=== PATIENT | male | born 1940 | race Caucasian/White ===

== ENCOUNTER 2018-04-25 19:07 | Emergency (ER) | payer MEDICARE, OTHER ==
--- NOTE | 2018-04-25 19:23 | ER Document Report ---
ED General - General Chief Complaint: Chest Wall Pain Stated Complaint: CHEST TUBE ISSUE Time Seen by Provider: 04/25/18 19:23 Notes: Patient is a 77-year-old male with stage IV lung carcinoma that presents to the emergency department for chief complaint of chest tube coming out. Patient states that he felt like his chest tube was falling out, over the last day, but particularly today, it was much further and based on the measurements according to the patient's son, so they came to the emergency department to have this evaluated. Patient states he had a chest tube placed for iatrogenic pneumothorax, after having a lung biopsy on April 07, he had to small bore catheters placed, and had significant subcutaneous emphysema as a result, which led to him having a larger bore chest tube placed anteriorly, by cardio thoracic surgery. He denies having any shortness of breath, or any pain associated with this. He also denies any fevers, chills, night sweats. Past Medical History: Stage IV lung carcinoma Past Surgical History: Lung biopsy Social History: Former smoker, no current alcohol or drug use. Family History: Reviewed and noncontributory for presenting illness Allergies: Reviewed, see documented allergy list. REVIEW OF SYSTEMS: Other than noted above, the 12 point review of systems was reviewed with the patient and were negative, all pertinent findings are included in the HPI. PHYSICAL EXAMINATION: Vital signs reviewed, nursing noted reviewed. GENERAL: Elderly male, no acute distress HEAD: Atraumatic, normocephalic. EYES: Eyes appear normal, extraocular movements intact, sclera anicteric, conjunctiva are normal. ENT: nares patent, oropharynx clear without exudates. Moist mucous membranes. NECK: Normal range of motion, supple without lymphadenopathy LUNGS: Bilateral rhonchorous lung sounds, there is a chest tube dressing on the left patient's chest, this was removed, and revealed a completely withdrawn thoracostomy tube, no longer in the pleural space. Patient did have palpable subcutaneous emphysema. No respiratory distress. HEART: Heart rate mildly tachycardic, regular rhythm, no audible murmurs ABDOMEN: Soft, nontender, normoactive bowel sounds. No rebound, guarding, or rigidity. No masses appreciated. EXTREMITIES: Nontender, good range of motion, no pitting or edema. NEUROLOGICAL: No focal neurological deficits. Moves all extremities spontaneously Motor and sensory grossly intact on exam. PSYCH: Normal mood, normal affect. SKIN: Warm, Dry, normal turgor, no rashes or lesions noted on exposed skin TRAVEL OUTSIDE OF THE [place] IN LAST 30 DAYS: No Past Medical History - Social History Smoking Status: Former Smoker Family History: Reviewed & Not Pertinent Physical Exam - Vital signs Vitals: Temp Pulse Resp BP Pulse Ox 97.6 F 105 H 23 H 149/76 H 91 L 04/25/18 19:10 04/25/18 19:10 04/25/18 19:10 04/25/18 19:10 04/25/18 19:10 Course - Re-evaluation Re-evalutation: Patient seen and examined vital signs reviewed. Patient's chest tube was completely withdrawn, on my examination, his dressing was taken down, sutures had broken off, at the skin, these are removed, occlusive dressing was placed, I then sutured the patient's wound closed, as noted above, patient tolerated well. Chest x-ray was obtained, demonstrated small apical pneumothorax, discussed this with the radiologist, she did compared to his chest x-ray from 04/20/2018, when he did have the chest tube in place, per the radiologist, this did have a small apical pneumothorax at that time as well. I did discuss this case with the patient's cardiothoracic surgeon Dr. Agustin, that placed the chest tube, at [facility], he recommended repeating a 4-hour chest x-ray, and if unchanged, the patient could be discharged to follow-up with him on Friday, and if it worsen, to transfer the patient to [facility]. In the meantime, the patient was placed on supplemental oxygen, to help improve his small apical pneumothorax. Repeat chest x-ray was unchanged from prior, at this point I feel that the patient can be discharged to follow-up with Dr. Agustin in the office on Friday, advised if any worsening symptoms to return to the emergency department Evaluation was most consistent with chest tube malfunction, apical pneumothorax Results were discussed with the patient at this point, after careful consideration I feel that that patient can be discharged from the emergency department, the patient was educated treatments and reasons to return to the emergency department based on their presumed diagnosis as noted above, they were advised to followup with a primary care physician in 2-3 days. Patient was agreeable to plan of care. *Note is created using voice recognition software and may contain spelling, syntax or grammatical errors. Chest X-Ray 04/25/18 23:25 IMPRESSION: No significant change. - Vital Signs Vital signs: Temp Pulse Resp BP Pulse Ox 97.6 F 105 H 19 148/78 H 96 04/25/18 19:10 04/25/18 19:10 04/25/18 23:31 04/25/18 23:31 04/25/18 23:31 - EKG Interpretation by Me Additional EKG results interpreted by me: EKG demonstrates sinus tachycardia with a ventricular rate of 101 bpm, normal axis, normal intervals, no evidence of acute ischemia on this EKG, no prior available for comparison. Procedures - Laceration/Wound Repair Left Chest Wound length (cm): 2.5 Wound's Depth, Shape: Other - chest tube wound Laceration pre-procedure: Sterile PPE donned, Chloraprep applied, Sterile drapes applied Anesthetic type: 1% Lidocaine Wound explored: Clean Wound Repaired With: Sutures Suture Size/Type: 3:0, Nylon Number of Sutures: 3 Layer Closure?: No Discharge - Discharge Clinical Impression: Pneumothorax Qualifiers: Pneumothorax type: unspecified pneumothorax Qualified Code(s): J93.9 - Pneumothorax, unspecified Complication of chest tube Qualifiers: Encounter type: initial encounter Qualified Code(s): T85.9XXA - Unspecified complication of internal prosthetic device, implant and graft, initial encounter Condition: Stable Disposition: HOME, SELF-CARE Additional Instructions: Please do not hesitate to return to the emergency department if you have any worsening symptoms such as shortness of breath or significant chest pain particularly on the left side, otherwise please follow-up with the cardiothoracic surgeon, as scheduled on Friday. Prescriptions: Benzonatate [Tessalon Perle 100 mg Capsule] 100 mg PO Q8HP PRN #20 cap PRN Reason: Cough Referrals: DONNELL TUTTLE MD [Primary Care Provider] - Follow up as needed GARDENIA UGARTE MD [NO LOCAL MD] - Follow up tomorrow
[2018-04-25] MEDS ORDERED: LIDOCAINE 1% INJ-PF (10 MG/ML) 30 ML SDV ONE (19:36)
[2018-04-25] MEDS ORDERED: LIDOCAINE 1% INJ (10 MG/ML) 10 ML MDV INJ ONE (19:58)
--- NOTE | 2018-04-25 20:44 | RADIOLOGY REPORT (SQ) ---
EXAM DESCRIPTION: CHEST SINGLE VIEW COMPLETED DATE/TIME: 04/25/2018 8:03 pm REASON FOR STUDY: chest pain, hx chest tube placement. The chest tube fell out at home. COMPARISON: Chest x-ray 04/20/[address] chest 04/13/2018 performed of [facility] . EXAM PARAMETERS: NUMBER OF VIEWS: One view. TECHNIQUE: Single frontal radiographic view of the chest acquired. RADIATION DOSE: NA LIMITATIONS: None. FINDINGS: LUNGS AND PLEURA: There is a small left-sided pneumothorax measuring approximately 11 mm a t the left lung apex. Airspace opacity noted at the left upper lobe, corresponding to known mass. T here is mild atelectasis at the bilateral lung bases. No sizable pleural effusion. MEDIASTINUM AND HILAR STRUCTURES: No masses. Contour normal. HEART AND VASCULAR STRUCTURES: Heart normal in size. Normal vasculature. BONES: No acute findings. HARDWARE: None in the chest. OTHER: Moderate amount of subcutaneous emphysema is seen at the left-sided chest wall. Small amount of subcutaneous emphysema at the right chest wall. IMPRESSION: 1. Small left-sided pneumothorax. Subcutaneous emphysema, left more than right. 2. Airspace opacity at the left upper lobe, corresponding to known mass. 3. Mild bibasilar atelectasis. COMMUNICATION The critical information above was relayed directly by me by telephone to Dr. Mejia On 04/25/2018 at 20:30 hrs with readback verification. TECHNICAL DOCUMENTATION: JOB ID: [id number] 2010 [employer]- All Rights Reserved Reading location - IP/workstation name: [email or web address]
--- NOTE | 2018-04-25 21:40 | EKG REPORT ---
SEVERITY:- BORDERLINE ECG - SINUS TACHYCARDIA BORDERLINE T ABNORMALITIES, ANT-LAT LEADS : Confirmed by: Yamila Srinivasan MD 25-Apr-2018 21:39:23
[2018-04-25] MEDS ORDERED: BENZONATATE 100 MG CAPSULE PO ONE (22:05)
--- NOTE | 2018-04-26 00:03 | RADIOLOGY REPORT (SQ) ---
EXAM DESCRIPTION: XR CHEST 1 VIEW COMPLETED DATE/TME: 04/25/2018 23:25 CLINICAL HISTORY: 77 years Male, repeat post chest tube removal COMPARISON: Same day. NUMBER OF VIEWS/TECHNIQUE: 1/AP FINDINGS: 4.1 cm ovoid opacity of the left upper lung field, mild interstitial markings, small right basilar atelectasis, moderate soft tissue emphysema of the thorax and neck, predominantly left. Normal cardiac silhouette size. Small left apical pneumothorax measures 0.8 cm. Stable bony thorax. IMPRESSION: No significant change.
[2018-04-26 00:21] VITALS: BP 145/78
== END 2018-04-26 00:22 | disposition home or self-care (01) ==
LOC: ER 19:07
DX: T85.9XXA Unspecified complication of internal prosthetic device, implant and graft, initial encounter (principal); Y82.8 Other medical devices associated with adverse incidents; J95.811 Postprocedural pneumothorax; Y84.8 Other medical procedures as the cause of abnormal reaction of the patient, or of later complication, without mention of misadventure at the time of the procedure; C34.90 Malignant neoplasm of unspecified part of unspecified bronchus or lung; R00.0 Tachycardia, unspecified; R09.89 Other specified symptoms and signs involving the circulatory and respiratory systems; Z87.891 Personal history of nicotine dependence
CPT/HCPCS: 12001; 93005; 99284; 71045; 93010; A9270